=== PATIENT | female | born 1960 | race Caucasian/White ===

== ENCOUNTER 2018-07-04 15:20 | Emergency (ER) | payer OTHER ==
[2018-07-04 15:38] VITALS: O2SAT 98
--- NOTE | 2018-07-04 15:49 | ERPHSYRPT ---
- History of Present Illness Time Seen by Provider: 07/04/18 15:40 Source: patient, family Exam Limitations: no limitations Patient Subjective Stated Complaint: hit her head on the ground.. No LOC .. possible cut to head and abrasion to left elbow states was tripped by her dog and she fell./ Triage Nursing Assessment: alert and oriented. hit head on ground after being tripped by her dog. small area noted on back of head. no bleeding noted. abrasion noted to left elbow. + radial pulse present. Physician History: 57 y/o white female fell and hit her head on the concrete and hit left elbow on concrete. pt states she hit the back of her head, had a brief loc and visual changes. visual changes have resolved. last tetanus 1 year ago. Occurred: just prior to arrival Severity: mild Head Injury Location: occipital Method of Injury: fell Loss of Consciousness: brief (seconds) Associated Symptoms: other (brief visual changes now resolved), No nausea, No vomiting, No abdominal pain, No shortness of breath, No chest pain, No fever, No headaches, No loss of appetite, No malaise, No rash, No syncope, No seizure, No weakness Allergies/Adverse Reactions: aspirin Allergy (Verified 07/04/18 15:48) codeine Allergy (Verified 07/04/18 15:48) Immunizations Up to Date: Yes - Review of Systems Constitutional: No Symptoms, No Fever, No Chills Eyes: No Symptoms, No Discharge, No Eye Pain Ears, Nose, & Throat: No Symptoms, No Ear Pain, No Ear Discharge Respiratory: No Symptoms, No Cough, No Dyspnea, No Stridor, No Wheezing Cardiac: No Symptoms, No Chest Pain, No Palpitations, No Syncope Abdominal/Gastrointestinal: No Symptoms, No Abdominal Pain, No Nausea, No Vomiting, No Diarrhea Genitourinary Symptoms: No Symptoms, No Dysuria, No Hematuria Musculoskeletal: Injury (left elbow) Skin: Other (abrasion post scalp and left elbow) Neurological: Headache, No Dizziness, No Focal Weakness, No Gait Changes Psychological: No Symptoms, No Alcohol Abuse, No Drug Abuse, No Anxiety Endocrine: No Symptoms, No Polyuria, No Other Hematologic/Lymphatic: No Symptoms Immunological/Allergic: No Symptoms All Other Systems: No Reviewed and Negative - Past Medical History Pertinent Past Medical History: Yes Neurological History: No Pertinent History ENT History: No Pertinent History Cardiac History: No Pertinent History Respiratory History: No Pertinent History Endocrine Medical History: No Pertinent History Musculoskeletal History: No Pertinent History GI Medical History: No Pertinent History History: No Pertinent History Psycho-Social History: No Pertinent History, Anxiety, Depression Female Reproductive Disorders: No Pertinent History - Past Surgical History Past Surgical History: No - Social History Smoking Status: Current every day smoker Exposure to second hand smoke: No Drug Use: none Patient Lives Alone: No - Female History Hx Now: No - Nursing Vital Signs Nursing Vital Signs: Initial Vital Signs Temperature 98.6 F 07/04/18 15:31 Pulse Rate 76 07/04/18 15:31 Respiratory Rate 18 07/04/18 15:31 Blood Pressure 184/99 07/04/18 15:31 O2 Sat by Pulse Oximetry 98 07/04/18 15:31 Pain Scale Pain Intensity 5 - [place] Coma Score Best Eye Response ([place]): (4) open spontaneously Best Verbal Response ([place]): (5) oriented Best Motor Response ([place]): (6) obeys commands [place] Total: 15 - Physical Exam General Appearance: no apparent distress, alert Head Injury: contusions (occipital region), tenderness Eye Exam: bilateral eye: normal inspection, PERRL, EOMI ENT Exam: airway nml, nml ext.inspection, No evidence of ENT injury, No dental injury, No clear fluid (ears), No clear fluid (nose) Neck Exam: supple, trachea midline, full range of motion, normal alignment, normal inspection, No focal neuro deficit, No limited range of motion Cardiovascular/Respiratory Exam: chest non-tender, normal breath sounds, regular rate/rhythm, heart sounds normal, no ecchymosis Gastrointestinal/Abdominal Exam: soft, non tender, no guarding, No rebound, No tenderness Pelvic Exam: not done Rectal Exam: not done Back Exam: normal inspection, normal range of motion, No CVA tenderness, No vertebral tenderness Extremity Exam: normal range of motion (abrasion left elbow.; nv intact), normal capillary refill Mental Status Exam: alert, oriented x 3, 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 Exam: normal hearing, normal speech, PERRL, tongue midline, No abnormal pupil position, No abnormal speech, No facial droop, No facial paresthesias, No tongue deviation to L Coordination/Gait Exam: normal finger to nose, normal gait, normal cerebellar function, negative Romberg's sign Motor/Sensory Exam: no motor deficit, no sensory deficit, no pronator drift, negative Babinski's sign Skin Exam: normal color, warm, dry Lymphatic Exam: adenopathy SpO2 Interpretation: normal SpO2: 98 Oxygen Delivery: Room Air - Course Nursing assessment & vital signs reviewed: Yes Ordered Tests: Active Orders 24 hr Category Date Time Status ELBOW (MINIMUM 3 VIEWS) Stat Exams 07/04/18 16:06 Completed HEAD WITHOUT CONTRAST [CT] Stat Exams 07/04/18 15:50 Completed Lab/Rad Data: xray left elbow-no acute fx or dislocation ct scan head-no acute intracranial process - Progress Progress: unchanged Counseled pt/family regarding: diagnosis, need for follow-up, rad results - Departure Time of Disposition: 16:43 Departure Disposition: Home Clinical Impression: Fall, Abrasion, Head injury Condition: Stable Critical Care Time: No Referrals: SANTOS MUNOZ [Primary Care Provider] - Additional Instructions: keep all abrasion sites clean daily with soap and water. apply antibiotic ointment to abrasion sites daily. follow up with primary doctor for further management
--- NOTE | 2018-07-04 16:22 | XRAY ---
Exam: 3 view left elbow series from 07/04/2018. Comparison: None. Indication: Trauma. Findings: AP, oblique, and lateral radiographs were obtained. I see no evidence of acute fracture, dislocation, or joint effusion. The left elbow joint space is well-preserved and reveals smooth articular margins. No abnormal periarticular soft tissue calcifications are seen. The anterior fat pad adjacent to the distal left humerus is not elevated. The patient's left elbow was flexed less than 90 on the lateral image. Impression: 1. No acute left elbow fracture, dislocation, or joint effusion is seen.
--- NOTE | 2018-07-04 16:32 | XRAY ---
Exam: CT of the head without IV contrast from 07/04/2018. Comparison: None. Indication: 57-year-old female fell striking posterior crown of head on concrete. Technique: Non-IV contrast axial images were obtained through the brain. Reconstructed coronal and sagittal images were created and reviewed. Findings: The ventricles appear of normal size. Dense choroid plexus calcification is seen bilaterally. No focal mass effect or midline shift is seen. No acute intracranial bleed or abnormal extra-axial fluid collection is seen. The barrera matter-white matter interfaces appear unremarkable. No low attenuation territorial infarct is seen. Structures of the posterior fossa appear unremarkable. The cortical sulci and basilar cisterns appear within normal limits. There is mild deviation of the anterior aspect of the nasal septum toward the right. The calvarium of the skull reveals no evidence of fracture. There is some minimal scalp contusion seen posteriorly near the midline on axial images #32 through #34. There is some mild soft tissue density within the posterior right ethmoid sinus, likely due to chronic ethmoid sinus disease/sinusitis. No paranasal sinus air-fluid levels are seen. The mastoid air cells are well aerated. Impression: 1. No acute intracranial bleed or other acute intracranial process is seen. 2. The calvarium of the skull reveals no evidence of fracture. There is a suggestion of a minimal scalp contusion seen external to the parietal-occipital junction near the midline. 3. Mild chronic posterior right ethmoid sinus disease. No air-fluid levels are seen.
[2018-07-04 17:00] VITALS: BP 178/80; PULSE 72
== END 2018-07-04 16:59 | disposition home or self-care (01) ==
LOC: ED 15:20
DX: S09.90XA Unspecified injury of head, initial encounter (principal); W01.198A Fall on same level from slipping, tripping and stumbling with subsequent striking against other object, initial encounter; Y93.K1 Activity, walking an animal; Y92.89 Other specified places as the place of occurrence of the external cause
CPT/HCPCS: 70450; 73080; 99283